=== PATIENT | male | born 1985 | race Caucasian/White ===

== ENCOUNTER 2021-06-08 14:01 | Emergency (ER) | payer SELFPAY ==
[2021-06-08 14:06] VITALS: BP 149/99; PULSE 85; TEMP 99.7; BMI 29.0
== END 2021-06-08 14:37 | disposition home or self-care (01) ==
LOC: FER 14:01
DX: R42 Dizziness and giddiness (principal)
CPT/HCPCS: 99281-25

== ENCOUNTER 2024-03-30 15:07 | Emergency (ER) | payer SELFPAY ==
[2024-03-30 15:12] VITALS: BMI 31.4
[2024-03-30 16:10] LABS: HEMATOCRIT 48.8 % (35.4-49); HEMOGLOBIN 15.8 G/dL (11.7-16.9); MCH 29.2 pg (25.7-33.7); MCHC 32.4 g/dl (32.0-35.9); MEAN PLT VOLUME 8.5 fl (7.5-11.1); PLATELET COUNT 333.2 10^3/uL (134-434); RBC 5.42 10^6/uL (4.00-5.60); RDW 13.5 % (11.9-15.9); WHITE BLOOD COUNT 8.4 10^3/uL (4.0-10.8)
[2024-03-30 16:19] LABS: PLATELET ESTIMATE ADEQUATE
[2024-03-30 16:26] LABS: ALBUMIN 4.8 g/dl (3.4-5.0); BILIRUBIN,TOTAL 0.3 mg/dl (0.2-1); CALCIUM 10.1 mg/dl (8.5-10.1); CREATININE 0.8 mg/dl (0.6-1.3); MAGNESIUM 1.9 mg/dL (1.8-2.4); POTASSIUM 3.8 mmol/L (3.5-5.1); TOT PROT 7.5 g/dl (6.4-8.2)
[2024-03-30 17:56] VITALS: BP 141/90; PULSE 98; RESP 14; TEMP 98.2
== END 2024-03-30 18:16 | disposition home or self-care (01) ==
LOC: FER 15:07
DX: R07.89 Other chest pain (principal); R06.02 Shortness of breath; I10 Essential (primary) hypertension
CPT/HCPCS: 36415; 71046-TC-FY; 80053; 83735; 84484; 85027; 85379; 93005; 99285-25

== ENCOUNTER 2025-01-28 14:21 | Emergency (ER) | payer SELFPAY ==
[2025-01-28 14:32] VITALS: BP 138/83; PULSE 83; RESP 18; TEMP 98.2; BMI 31.7
== END 2025-01-28 14:59 | disposition home or self-care (01) ==
LOC: FER 14:21
DX: M77.31 Calcaneal spur, right foot (principal); M77.9 Enthesopathy, unspecified
CPT/HCPCS: 73630-TC-RT-FY; 99283-25